=== PATIENT | female | born 1995 | race Caucasian/White ===

== ENCOUNTER 2020-03-01 14:21 | Emergency (ER) | payer SELFPAY ==
[2020-03-01 14:35] VITALS: O2SAT 97
[2020-03-01] MEDS ORDERED: KETOROLAC TROMETHAMINE INJ 60 MG/2 ML VIAL IM ONE (14:38)
--- NOTE | 2020-03-01 14:41 | ED.PDOC ---
History of Present Illness - General Chief Complaint: Chest Pain/CA Stated Complaint: "my chest hurts" Time Seen by Provider: 03/01/20 14:36 Source: patient Additional Information: 24yo F presents with chest pain. The symptoms onset over the past 1-2 days. She describes the sensation as "dry-ice" in her chest. The discomfort is sharp. She reports no recent illness. Denies cough, congestion or SOB. The patient has been exposed to a friend that has had a recent asthma exacerbation. The patient has no hx of medical problems including lung problems. No fever. Denies abdominal pain, nausea, vomiting, diarrhea or urinary discomfort. No other reported issues. - History of Present Illness Severity/Quality: moderate Location: substernal Allergies/Adverse Reactions: Allergies NO KNOWN ALLERGY Allergy (Verified 03/01/20 14:36) Review of Systems - Review of Systems Constitutional: Denies: chills, fever EENTM: States: no symptoms reported Respiratory: Denies: cough, short of breath, wheezing Cardiology: States: chest pain. Denies: palpitations Genitourinary: States: no symptoms reported Musculoskeletal: Denies: back pain, neck pain Skin: Denies: lesions, rash Neurological: Denies: numbness, paresthesia, weakness Endocrine: States: no symptoms reported Hematologic/Lymphatic: States: no symptoms reported Past Medical History (General) - Patient Medical History Hx Asthma: No Hx Cardiac Disorders: No Hx Congestive Heart Failure: No Surgical History: no surgical history - Vaccination History Hx Influenza Vaccination: Yes - Social History Hx Alcohol Use: Yes - Activities of Daily Living Hospice Agency (if applicable):: None - Female History Patient : No Family Medical History - Family History Mother Family History: No Known Physical Exam - Physical Exam General Appearance: Alert, Comfortable, No apparent distress Eyes, Ears, Nose, Throat Exam: PERRL/EOMI, normal ENT inspection Neck: non-tender, full range of motion, supple Respiratory: lungs clear, no respiratory distress, other - Sternal tenderness Cardiovascular/Chest: normal peripheral pulses, regular rate, rhythm, no edema Peripheral Pulses: radial,right: 2+, radial,left: 2+ Gastrointestinal/Abdominal: normal bowel sounds, non tender, soft Extremity: normal range of motion, non-tender, normal inspection Neurologic: no motor/sensory deficits, alert, normal mood/affect, oriented x 3 Skin Exam: normal color, warm/dry Progress - Progress Progress: 03/01/20 14:44 DDX: Pleuritic chest pain, ACS, arrhythmia, pneumonia, allergies, URI, COVID, msk pain. HEART Score < 3 Airborne+ PPE used. Feliberto Hdez, #[id number] 03/01/20 18:41 No acute findings in ED workup. The patient reports improved symptoms with ED treatment. Results discussed. Discussed COVID test pending and will return in 5-10 days. Discussed social distancing precautions. The patient is comfortable with the plan for discharge and close outpatient follow up. Return warnings discussed. All questions answered. It was a pleasure to care for this patient today. - Results/Orders Results/Orders: 03/01/20 14:37 SARS-COV2 RT-PCR HIGH RISK Stat 03/01/20 14:45 EKG STAT Laboratory Results - last 24 hr 03/01/20 03/01/20 03/01/20 14:59 15:02 15:02 WBC 6.2 RBC 4.96 Hgb 14.4 Hct 41.4 MCV 83.6 MCH 29.1 MCHC 34.8 RDW 12.8 Plt Count 246 MPV 8.8 Absolute Neuts (auto) 3.70 Absolute Lymphs (auto) 1.90 Absolute Monos (auto) 0.50 Absolute Eos (auto) 0.10 Absolute Basos (auto) 0.00 Neutrophils % 59.7 Lymphocytes % 30.2 Monocytes % 8.7 Eosinophils % 1.0 Basophils % 0.4 D-Dimer, Quantitative Sodium 138 Potassium 3.7 Chloride 106 Carbon Dioxide 25 Anion Gap 10.7 L BUN 8 Creatinine 0.67 BUN/Creatinine Ratio 11.9 Random Glucose 99 Serum Osmolality 274.0 L Calcium 9.4 Creatine Kinase 62 CK-MB (CK-2) 0.6 CK-MB (CK-2) % Not Reportable Troponin I < 0.02 Serum HCG, Qual Negative Urine Color Urine Appearance Urine pH Ur Specific [place] Urine Protein Urine Glucose (UA) Urine Ketones Urine Blood Urine Nitrite Urine Bilirubin Urine Urobilinogen Ur Leukocyte Esterase Urine RBC Urine WBC Ur Epithelial Cells Urine Bacteria Urine Mucus 03/01/20 03/01/20 15:02 15:15 WBC RBC Hgb Hct MCV MCH MCHC RDW Plt Count MPV Absolute Neuts (auto) Absolute Lymphs (auto) Absolute Monos (auto) Absolute Eos (auto) Absolute Basos (auto) Neutrophils % Lymphocytes % Monocytes % Eosinophils % Basophils % D-Dimer, Quantitative < 131.0 L Sodium Potassium Chloride Carbon Dioxide Anion Gap BUN Creatinine BUN/Creatinine Ratio Random Glucose Serum Osmolality Calcium Creatine Kinase CK-MB (CK-2) CK-MB (CK-2) % Troponin I Serum HCG, Qual Urine Color Yellow Urine Appearance Clear Urine pH 6.0 Ur Specific [place] 1.025 Urine Protein Negative Urine Glucose (UA) Negative Urine Ketones Negative Urine Blood Trace-intact H Urine Nitrite Negative Urine Bilirubin Negative Urine Urobilinogen 0.2 Ur Leukocyte Esterase Negative Urine RBC 0-1 Urine WBC 1-3 Ur Epithelial Cells 5-10 Urine Bacteria 2+ H Urine Mucus Small Last Vital Signs Temp 99.2 F 03/01/20 18:02 Pulse 77 03/01/20 18:02 Resp 18 03/01/20 18:02 BP 126/81 03/01/20 18:02 Pulse Ox 97 03/01/20 18:02 - EKG/XRAY/CT EKG: Sinus - 87, nl axis, nl intervals, no ST T wave changes - (14:30) XRAY: chest - No acute findings. See formal read. Departure - Departure Clinical Impression: Chest pain Qualifiers: Chest pain type: unspecified Qualified Code(s): R07.9 - Chest pain, unspecified Time of Disposition: 17:21 Disposition: Discharge to Home or Self Care Condition: Good Departure Forms: ED Discharge - Pt. Copy, Patient Portal Self Enrollment Instructions: DI for Chest Pain Referrals: JACKELIN ZUNIGA [Primary Care Provider] - 1-2 Weeks
--- NOTE | 2020-03-01 14:59 | RAD ---
EXAM: Chest,1 View CLINICAL HISTORY: Chest pain COMPARISON STUDY: None TECHNICAL: A single anteroposterior (AP) view of the chest was performed. FINDINGS: No consolidations, effusions, or edema. The heart size is not enlarged. AP portable technique causes magnification with some enlargement of the cardiac silhouette. IMPRESSION: NO ACUTE ABNORMALITY. Electronically signed by: Mirza Kelley MD 03/01/2020 2:57 PM CDT
[2020-03-01 18:14] VITALS: BP 126/81; TEMP 99.2
== END 2020-03-01 18:05 | disposition home or self-care (01) ==
LOC: ER 14:21
DX: R07.9 Chest pain, unspecified (principal)
CPT/HCPCS: 71045; 80048; 81001; 82550; 82553; 84484; 84703; 85025; 85379; 93005; J1885